=== PATIENT | female | born 1965 | race Hispanic/Latino ===

== ENCOUNTER 2018-12-23 13:52 | Outpatient (CLI) | payer BC ==
[~2018-12-23 13:52] MED LIST: Gadobenate Dimeglumine 529 MG/1 ML (20ML VIAL) ONE
--- NOTE | 2018-12-23 14:55 | RAD ---
LUMBAR SPINE SERIES 4 VIEWS: Date: 12/23/18 HISTORY: Back pain, more right-sided and extending to right thigh. FINDINGS: Vertebral bodies are normal in height. Degenerative osteophytes are seen. Minimal disc narrowing at L 2-3 and L3-4. No spondylolisthesis and no abnormal motion in flexion or extension. Postop laminectomy change is seen at the L5 level. IMPRESSION: Mild arthritic changes of the spine and postop changes. POS: [facility]
--- NOTE | 2018-12-23 15:58 | MRI ---
EXAM: MRI lumbar spine without and with contrast HISTORY: Lumbar radiculopathy COMPARISON: None TECHNIQUE: Multiple planar multisequence MR images were obtained of the lumbar spine without and with contrast. FINDINGS: The vertebral bodies demonstrate normal height and alignment without fracture or subluxation. There a re only 4 nonrib-bearing vertebral bodies. Postsurgical changes are seen in the posterior paraspinal soft tissues at L4/S1. The prevertebral sof t tissues are unremarkable. No marrow signal abnormality is present. Generalized disc desiccation is seen. The conus medullaris terminates normally at T12/L1. Enhancement is seen in the paraspinal soft tissues without enhancement in the central canal. T12/L1: No significant posterior bulge or protrusion. No posterior facet arthrosis. No central warren l stenosis. No neural foraminal stenosis L1/2: A minimal disc osteophyte complex is seen. No posterior facet arthrosis. No central canal rico nosis. No neural foraminal stenosis L2/3: A minimal disc osteophyte complex is seen. No posterior facet arthrosis. Mild central canal s tenosis. Mild bilateral neural foraminal stenosis L3/4: A small disc osteophyte complex is seen. Mild bilateral posterior facet arthrosis. No central canal stenosis. Moderate right and mild left neural foraminal stenosis L4/S1: There is a very minimal central protrusion. Mild left posterior facet arthrosis. No central canal stenosis. Moderate bilateral neural foraminal stenosis IMPRESSION: Postoperative and degenerative changes of the lumbar spine as above.
== END 2018-12-23 13:53 | disposition home or self-care (01) ==
LOC: TBSIIMAG 13:52
PROVIDERS: ATTEND Surgery
DX: M47.26 Other spondylosis with radiculopathy, lumbar region (principal); Z98.890 Other specified postprocedural states
CPT/HCPCS: 72110; 72158; A9577